=== PATIENT | male | born 1995 | race Caucasian/White ===

== ENCOUNTER 2017-03-16 16:53 | Emergency (ER) | payer BC | END 2017-03-16 23:32 | disposition home or self-care (01) | LOC: D.ER 16:53 | DX: R47.89 Other speech disturbances (principal) ==

== ENCOUNTER → 2017-04-23 08:59 | Outpatient (CLI) | payer BC ==
[2017-04-23 13:24] LABS: APPEARANCE - CSF COLORLESS; RBC - CSF 0 cmm (0-0)
[2017-04-23 13:47] LABS: GLUCOSE - CSF 64 MG/DL (40-75); PROTEIN - CSF 31 MG/DL (12-60)
[2017-04-24 07:24] LABS: RAPID PLASMA REAGIN Non Reactive (Non Reactive)
--- NOTE | 2017-04-24 16:42 | EC ---
PATIENT:CARMEN BAEZ DATE OF SERVICE: 04/23/17 SEX: M MEDICAL RECORD: [id number] DATE OF : [birth year] LOCATION:[facility] AGE OF PATIENT: 21 ADMISSION DATE: 04/23/17 REFERRING PHYSICIAN: INTERPRETING PHYSICIAN: NYA LEE MD ECHOCARDIOGRAM REPORT ECHO CHARGES 4 ECHO COMPLETE CLINICAL DIAGNOSIS: HYPOESTHESIA/DIPLOPIA ECHOCARDIOGRAPHIC MEASUREMENTS (adult normal given) AC root (d.<3.7cm) 3.1 cm LV Septum d (<1.2 cm> 1.1 cm Valve Excursion 2.2 cm LV Septum (systole) 1.5 cm Left Atria (s.<4.0cm> 3.1 cm LVPW d(<1.2cm) 1.0 cm RV (d.<2.3cm) 2.1 cm LVPW (sytole) 1.7 cm LV diastole(<5.6CM) 5.0 cm MV E-F(>70mm/sec) cm LV systole 2.8 cm LVOT Diameter 2.1 cm MV exc.(>10mm) cm Est.ejection fraction (50-75%) % Pericardial Effusion N DOPPLER: LVIT cm/sec A 57.0 cm/sec E 78.0 cm/sec LA cm/sec RVSP 34.0 mmHg LVOT 100 cm/sec AOP1/2T m/s Asc. Ao 120 cm/sec RVOT 86.0 cm/sec RA cm/sec PA 100 cm/sec AV Gradient Peak 5.7 mmHg AV Mean 3.4 mmHg AV Area 2.4 cm MV Gradient Peak 4.3 mmHg MV Mean 1.6 mmHg MV Area cm COMMENTS: Manager Delivery: Edgard TAVERAOE Participant Administrator: 1 Dr. Lee TAPE# PACS DATE OF SERVICE: 04/23/2017 PROCEDURE: Echocardiogram. FINDINGS: 1. Left ventricular chamber size is within normal limits. Left ventricular systolic function is normal. Overall ejection fraction estimated at 55%. 2. Left atrium, right atrium, and right ventricular chamber sizes are within normal limits. 3. Valvular structures have normal structure and motion. ECHOCARDIOGRAM REPORT [id number] CARMEN BAEZ 4. Doppler interrogation only reveals trace mitral and tricuspid regurgitation, no other valvular insufficiency or stenosis and pulmonary systolic pressure is normal estimated 34 mmHg. 5. No evidence of pericardial effusion or left ventricular thrombus. 6. No cardiac source. No neurologic emboli. 7. Bubble study was performed. This is normal with no left to right or right to left shunt. TRANSINT:[id number] Voice Confirmation ID: [id number] DOCUMENT ID: [id number] NYA LEE MD at 1642 CC: [id number] DICTATION DATE: 04/23/17 1242 COLLEGE HIRE: 04/23/17 1412 DEP CLI 04/23/17 [facility] [address] [place] [address]
[2017-04-24 21:08] LABS: AFB SPECIMEN PROCESSING Concentration (())
[2017-04-25 10:17] LABS: FUNGUS STAIN Final report (())
[2017-04-25 12:15] LABS: IGGS - IGG INDEX CSF 0.5 (0.0-0.7); IGGS - IGG SYNTHESIS RATE CSF -1.9 mg/day (-9.9 TO +3.3)
[2017-04-25 13:16] LABS: WNVS - IGG Negative (Negative); WNVS - IGM Negative (Negative)
[2017-04-25 14:30] LABS: EHRLICHIA CHAFF IGG Negative (Neg:<1:64); EHRLICHIA CHAFF IGM Negative (Neg:<1:20); HGE IGG TITER Negative (Neg:<1:64); HGE IGM TITER Negative (Neg:<1:20)
[2017-05-21 08:08] LABS: FUNGUS MYCOLOGY CULTURE Final report (())
[2017-06-08 15:21] LABS: ACID FAST CULTURE Negative (()); ACID FAST SMEAR Negative (())
== END | disposition home or self-care (01) ==
LOC: D.ECHO 08:59 → D.RAD 11:00
PROVIDERS: Psychiatry & Neurology Neurology
DX: R20.1 Hypoesthesia of skin (principal); H53.2 Diplopia